=== PATIENT | male | born 1990 | race Caucasian/White ===

== ENCOUNTER 2017-04-17 10:22 | Emergency (ER) | payer OTHER ==
--- NOTE | 2017-04-17 12:22 | US ---
EXAMINATION TYPE: US thyroid st tissue head/neck DATE OF EXAM: 04/17/2017 COMPARISON: NONE CLINICAL HISTORY: mass. Palpable mass right neck submandibular x 1 week Right neck at palpable: 2.7 x 1.7 x 3.3cm hypoechoic vascular structure with hyperechoic hilum, proba ble lymph node Left neck for comparison: 1.9 x 0.9 x 2.5cm hypoechoic vascular structure with hyperechoic hilum, pro bable lymph node. IMPRESSION: Right-sided neck lymph node is abnormal with enlargement and loss of normal fatty hilum. Differential includes infection, inflammation, a neoplasm. Need to follow-up with cross-sectional im aging (CT or MRI) after medical treatment should be based on clinical correlation.
--- NOTE | 2017-04-17 12:22 | ED ---
General Adult HPI - General Chief complaint: Recheck/Abnormal Lab/Rx Stated complaint: Lump in neck Time Seen by Provider: 04/17/17 10:43 Source: patient, RN notes reviewed, old records reviewed Mode of arrival: ambulatory Limitations: no limitations - History of Present Illness Initial comments: This is a 27-year-old male to the ER for evaluation. Patient has no significant medical history takes no medications. No recent episodes of complaints of illness. Patient states he has had a mass or a lump underneath the right jaw for 5 days now which she awoke with 5 days ago. Patient states is not getting worse. Does not cause him significant pain, maybe a little bit of worse pain when he opens his mouth wide no difficulty with swallowing. Again no cough congestion fever, runny nose. Patient presents today because he has work and wanted to be evaluated - Related Data Home Medications Medication Instructions Recorded Confirmed No Known Home Medications [No 09/14/15 04/17/17 Known Home Medications] Allergies Allergy/AdvReac Type Severity Reaction Status Date / Time codeine Allergy Rash/Hives Verified 04/17/17 10:57 Penicillins Allergy Rash/Hives Verified 04/17/17 10:57 lactose AdvReac Nausea & Verified 04/17/17 10:57 Vomiting & Diarrhea Review of Systems ROS Statement: Those systems with pertinent positive or pertinent negative responses have been documented in the HPI. ROS Other: All systems not noted in ROS Statement are negative. 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 Absent: scleral icterus, conjunctival injection, periorbital swelling ENT exam: Present: normal exam, mucous membranes moist, other (Patient does have 3 x 3 cm area mass underneath right jaw, submandibular) Neck exam: Present: normal inspection. Absent: tenderness, meningismus, lymphadenopathy Respiratory exam: Present: normal lung sounds bilaterally. Absent: respiratory distress, wheezes, rales, rhonchi, stridor Cardiovascular Exam: Present: regular rate, normal rhythm, normal heart sounds. Absent: systolic murmur, diastolic murmur, rubs, gallop, clicks GI/Abdominal exam: Present: soft, normal bowel sounds. Absent: distended, tenderness, guarding, rebound, rigid Extremities exam: Present: normal inspection, full ROM, normal capillary refill. Absent: tenderness, pedal edema, joint swelling, calf tenderness Back exam: Present: normal inspection Neurological exam: Present: alert, oriented X3, CN II-XII intact Psychiatric exam: Present: normal affect, normal mood Skin exam: Present: warm, dry, intact, normal color. Absent: rash Course Vital Signs 04/17/17 10:36 Temperature 99.3 F Pulse Rate 91 Respiratory 18 Rate Blood Pressure 171/94 O2 Sat by Pulse 99 Oximetry - Reevaluation(s) Reevaluation #1: 04/17/17 14:26 Discussed at length with patient findings, will follow-up with primary care, patient does see Dr. Fam Medical Decision Making - Medical Decision Making 27 male the ER with right submandibular mass, lymphadenopathy. Likely sinus infection. Patient will be placed on antibiotics and discharged home - Lab Data Result diagrams: 04/17/17 12:50 04/17/17 12:50 Lab Results 04/17/17 04/17/17 Range/Units 12:50 12:50 WBC 6.5 (3.8-10.6) k/uL RBC 5.37 (4.30-5.90) m/uL Hgb 15.7 (13.0-17.5) gm/dL Hct 46.1 (39.0-53.0) % MCV 85.8 (80.0-100.0) fL MCH 29.1 (25.0-35.0) pg MCHC 34.0 (31.0-37.0) g/dL RDW 13.5 (11.5-15.5) % Plt Count 183 (150-450) k/uL Neutrophils % 47 % Lymphocytes % 36 % Monocytes % 8 % Eosinophils % 5 % Basophils % 1 % Neutrophils # 3.1 (1.3-7.7) k/uL Lymphocytes # 2.3 (1.0-4.8) k/uL Monocytes # 0.5 (0-1.0) k/uL Eosinophils # 0.3 (0-0.7) k/uL Basophils # 0.1 (0-0.2) k/uL Sodium 144 (137-145) mmol/L Potassium 4.2 (3.5-5.1) mmol/L Chloride 105 (98-107) mmol/L Carbon Dioxide 28 (22-30) mmol/L Anion Gap 11 mmol/L BUN 11 (9-20) mg/dL Creatinine 0.80 (0.66-1.25) mg/dL Est GFR (MDRD) Af Amer >60 (>60 ml/min/1.73 sqM) Est GFR (MDRD) Non-Af >60 (>60 ml/min/1.73 sqM) Glucose 101 H (74-99) mg/dL Calcium 9.7 (8.4-10.2) mg/dL Phosphorus 2.6 (2.5-4.5) mg/dL Magnesium 2.0 (1.6-2.3) mg/dL Total Bilirubin 0.5 (0.2-1.3) mg/dL AST 129 H (17-59) U/L ALT 173 H (21-72) U/L Alkaline Phosphatase 77 (38-126) U/L C-Reactive Protein 14.0 H (<10.0) mg/L Total Protein 7.9 (6.3-8.2) g/dL Albumin 4.8 (3.5-5.0) g/dL Amylase 53 (30-110) U/L - Radiology Data Radiology results: report reviewed (US neck p[ositive LN, CT soft tissue neck likely LNadenopathy), image reviewed Disposition Clinical Impression: LAD (lymphadenopathy) of right cervical region, Sinusitis Narrative: Right Submandibular Lymphadenopathy Disposition: HOME SELF-CARE Condition: Good Instructions: Sinusitis (ED), Lymphadenopathy (ED) Referrals: Rudy Linares Jr, [Primary Care Provider] - 1-2 days
[2017-04-17] MEDS ORDERED: RX INFO: IV CONTRAST WAS GIVEN 1 EACH MISC MISCELLANE PRN (12:26)
[2017-04-17] MEDS ORDERED: SODIUM CHLORIDE 0.9% 1,000 ML IV STA (12:29)
[2017-04-17 13:06] LABS: Basophils # (A) 0.1 k/uL (0-0.2); Basophils % (A) 1 %; Eosinophils # (A) 0.3 k/uL (0-0.7); Eosinophils % (A) 5 %; HCT 46.1 % (39.0-53.0); HGB 15.7 gm/dL (13.0-17.5); Lymphocytes # (A) 2.3 k/uL (1.0-4.8); Lymphocytes % (A) 36 %; MCH 29.1 pg (25.0-35.0); MCV 85.8 fL (80.0-100.0); Mean Platelet Volume 7.5; Monocytes # (A) 0.5 k/uL (0-1.0); Monocytes % (A) 8 %; Neutrophils # (A) 3.1 k/uL (1.3-7.7); Neutrophils % (A) 47 %; Platelet Count 183 k/uL (150-450); RBC 5.37 m/uL (4.30-5.90); RDW 13.5 % (11.5-15.5); WBC 6.5 k/uL (3.8-10.6)
[2017-04-17 13:16] LABS: ALT 173 U/L (21-72); AST 129 U/L (17-59); Albumin 4.8 g/dL (3.5-5.0); Alkaline Phosphatase 77 U/L (38-126); Amylase 53 U/L (30-110); Anion Gap 11 mmol/L; Blood Urea Nitrogen 11 mg/dL (9-20); Calcium 9.7 mg/dL (8.4-10.2); Carbon Dioxide 28 mmol/L (22-30); Chloride 105 mmol/L (98-107); Glucose 101 mg/dL (74-99); Phosphorus 2.6 mg/dL (2.5-4.5); Potassium 4.2 mmol/L (3.5-5.1); Sodium 144 mmol/L (137-145); Total Bilirubin 0.5 mg/dL (0.2-1.3); Total Protein 7.9 g/dL (6.3-8.2)
--- NOTE | 2017-04-17 13:50 | CT ---
EXAMINATION TYPE: CT soft tissue neck w con DATE OF EXAM: 04/17/2017 HISTORY: Lump Rt side of neck COMPARISON: NONE CT DLP: 396.1 mGycm. Automated Exposure Control for Dose Reduction was Utilized. TECHNIQUE: CT scan of the neck is performed with IV Contrast, patient injected with 100 mL of Omnipa que 300, axial images are obtained, coronal and sagittal reformatted images are reviewed. FINDINGS: Airway: No gross abnormality seen. Parotid/submandibular glands: Parotid and submandibular glands are symmetric other than the mass effe ct of the right submandibular gland as described below. No surrounding inflammatory change. Carotid/Vascular Structures: No hemodynamically significant stenosis. There is a normal anatomic bran ch pattern configuration of the great vessels. Vertebral arteries are codominant. Osseous Structures: Moderate right and severe left polypoid mucosal thickening is seen within the max illary sinuses extending into the ethmoid sinuses, partially visualized. Mastoid air cells are well a erated as are the sphenoid sinuses as visualized. Osseous structures appear intact. Lymph nodes: Corresponding the palpable abnormality in the submandibular region with mass effect upon the submandibular gland, displacing the submandibular gland posteriorly, there is an abnormal and en larged 2.1 x 3.5 x 2.1 cm lymph node that is asymmetrically enlarged from the left. Prominent left batista bmandibular lymph node maintains a normal fatty hilum and measures 1 cm in short axis. No other enlar ged lymph nodes are seen within the neck. IMPRESSION: An enlarged abnormal right submandibular lymph node corresponds to the patient's palpable abnormality . Moderate to severe paranasal sinus disease is also appreciated. Therefore this lymph node could be reactive or neoplastic with lymphoma as a consideration. Correlation with hematology assessment is re commended.
[2017-04-17] MEDS ORDERED: DEXAMETHASONE SOD PHOSPHATE 10 MG/ML 1 ML VIAL IV STA (14:24)
[2017-04-17] MEDS ORDERED: KETOROLAC 30 MG/ML 1 ML VIAL IVP STA (14:24)
[2017-04-17] MEDS ORDERED: AZITHROMYCIN 500 MG TAB PO STA (14:25)
[2017-04-17 14:51] VITALS: BP 134/61; PULSE 85; RESP 16; TEMP 97.6
== END 2017-04-17 14:51 | disposition home or self-care (01) ==
LOC: EC 10:22
DX: J32.9 Chronic sinusitis, unspecified (principal); R59.0 Localized enlarged lymph nodes; F17.200 Nicotine dependence, unspecified, uncomplicated; Z91.011 Allergy to milk products; Z88.0 Allergy status to penicillin; Z88.5 Allergy status to narcotic agent
CPT/HCPCS: 36415; 80053; 82150; 83735; 84100; 85025; 86140; 87040; 76536; 70491; 99284; 96374; 96375; J1100; J1885; Q9967

== ENCOUNTER 2017-07-09 10:21 | Emergency (ER) | payer OTHER ==
[2017-07-09 10:32] VITALS: BP 128/81; PULSE 105; RESP 18; TEMP 99
--- NOTE | 2017-07-09 10:52 | ED ---
General Adult HPI - General Chief complaint: Extremity Problem,Nontraumatic Stated complaint: Right knee pain Time Seen by Provider: 07/09/17 10:37 Source: patient, RN notes reviewed Mode of arrival: wheelchair Limitations: physical limitation - History of Present Illness Initial comments: Patient 27-year-old male presenting to the emergency room today with a chief complaint of both right hip and knee pain. He states he woke up this morning with pain greatest in the right knee. Also missed some discomfort to the right hip with certain movements. Patient denies any specific injury or trauma. Believes he may have done something body was sleeping. He does admit that the pain is worse with flexion at the right knee and hip. Patient states he did take ibuprofen 2 hours ago and has had some relief of the symptoms. Patient denies any other complaints or symptoms at this time. Patient denies any recent fever, chills, shortness of breath, chest pain, abdominal pain, nausea or vomiting, numbness or tingling, headaches or visual changes, or any other complaints. - Related Data Previous Rx's Medication Instructions Recorded Azithromycin [Zithromax Z-pack] 0 mg PO DIRECTED #6 tab 04/17/17 Naproxen [Naprosyn] 500 mg PO Q12HR PRN #30 tab 04/17/17 Naproxen [Naprosyn] 500 mg PO Q12HR PRN #30 tab 04/17/17 Allergies Allergy/AdvReac Type Severity Reaction Status Date / Time codeine Allergy Rash/Hives Verified 07/09/17 10:31 Penicillins Allergy Rash/Hives Verified 07/09/17 10:31 lactose AdvReac Nausea & Verified 07/09/17 10:31 Vomiting & Diarrhea Review of Systems ROS Statement: Those systems with pertinent positive or pertinent negative responses have been documented in the HPI. ROS Other: All systems not noted in ROS Statement are negative. 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 Neck: The neck is supple, there is no tenderness or JVD. Musculoskeletal: Normal appearance of the right hip and knee no swelling or deformity. Patient shows full range motion both flexion and extension. Mild tenderness over the lateral aspect of the right hip. Mildly tender over the anterior aspect of the right knee. No bony tenderness down to the right ankle or foot. Pedal pulse 2+. Strength 5/5. Neurological: A&O x 3. CN II-XII intact, There are no obvious motor or sensory deficits. Coordination appears grossly intact. Speech is normal. Skin: Skin is warm and dry and no rashes or lesions are noted. Psychiatric: Normal mood and affect. Limitations: physical limitation Course Vital Signs 07/09/17 10:27 Temperature 99.0 F Pulse Rate 105 H Respiratory 18 Rate Blood Pressure 128/81 O2 Sat by Pulse 97 Oximetry Medical Decision Making - Medical Decision Making Patient reexamined showing no signs of distress. Patient's x-rays are negative. Patient requesting work no. Patient advised continue Tylenol/Advil for pain and follow-up family doctor symptoms persist. Disposition Clinical Impression: Knee pain Disposition: HOME SELF-CARE Condition: Good Is patient prescribed a controlled substance at d/c from ED?: No Referrals: Rudy Linares Jr, DO [Primary Care Provider] - 1-2 days Time of Disposition: 11:38
--- NOTE | 2017-07-09 11:18 | XR ---
EXAMINATION TYPE: XR knee complete RT DATE OF EXAM: 07/09/2017 CLINICAL HISTORY: Right knee pain with no known injury TECHNIQUE: Three views of the right knee are obtained. COMPARISON: None. FINDINGS: There is no acute fracture/dislocation evident in right knee. The tri-compartment joint s paces appear within normal limits. The overlying soft tissue appears unremarkable. IMPRESSION: There is no acute fracture or dislocation in the right knee.
--- NOTE | 2017-07-09 11:19 | XR ---
EXAMINATION TYPE: XR pelvis AP view DATE OF EXAM: 07/09/2017 CLINICAL HISTORY: Right hip pain with no known injury TECHNIQUE: A single AP view of the pelvis is obtained. COMPARISON: None. FINDINGS: There is no acute fracture/dislocation evident in the pelvis. The hip and sacroiliac join ts appear symmetric and unremarkable. The overlying soft tissue appears unremarkable. IMPRESSION: There is no acute fracture or dislocation in the pelvis.
== END 2017-07-09 12:12 | disposition home or self-care (01) ==
LOC: EC 10:21
DX: M25.561 Pain in right knee (principal); M25.551 Pain in right hip; F17.200 Nicotine dependence, unspecified, uncomplicated; Z88.0 Allergy status to penicillin; Z91.011 Allergy to milk products
CPT/HCPCS: 72170; 99283

== ENCOUNTER 2017-09-19 00:20 | Emergency (ER) | payer OTHER ==
[2017-09-19 00:27] VITALS: BP 164/94; PULSE 121; RESP 20; TEMP 98.3
--- NOTE | 2017-09-19 00:33 | ED ---
Upper Extremity HPI - General Chief Complaint: Extremity Injury, Upper Stated Complaint: HAND INJURY Time Seen by Provider: 09/19/17 00:28 Source: patient, RN notes reviewed Mode of arrival: ambulatory Limitations: no limitations - History of Present Illness Initial Comments: This is a 27-year-old male who presents to the emergency department with chief complaint of right hand injury. Patient states that at 6 PM this evening "in a fit of frustration" he punched his hardwood floor. Patient states he is sure he has a boxer's fracture. Denies any other injuries or trauma. Denies recent fevers or chills, chest pain or shortness of breath, abdominal pain, nausea or vomiting, numbness or tingling. Patient reports normal range of motion and sensation. - Related Data Previous Rx's Medication Instructions Recorded Azithromycin [Zithromax Z-pack] 0 mg PO DIRECTED #6 tab 04/17/17 Naproxen [Naprosyn] 500 mg PO Q12HR PRN #30 tab 04/17/17 Naproxen [Naprosyn] 500 mg PO Q12HR PRN #30 tab 04/17/17 Allergies Allergy/AdvReac Type Severity Reaction Status Date / Time codeine Allergy Rash/Hives Verified 09/19/17 00:26 Penicillins Allergy Rash/Hives Verified 09/19/17 00:26 lactose AdvReac Nausea & Verified 09/19/17 00:26 Vomiting & Diarrhea Review of Systems ROS Statement: Those systems with pertinent positive or pertinent negative responses have been documented in the HPI. ROS Other: All systems not noted in ROS Statement are negative. 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 HEENT: Head atraumatic, normocephalic. Pupils are equal, round and reactive to light. Extraocular movements intact. Oropharynx moist without erythema or exudate. Neck: Supple. Normal ROM. Cardiovascular: Regular rate and rhythm. No murmurs, rubs or gallops. Chest symmetrical. Respiratory: Lungs clear to auscultation bilaterally. No wheezes, rales or rhonchi. Normal respiratory effort with no use of accessory muscles. Musculoskeletal: Normal range of motion of the right hand. There is tenderness along the fourth metacarpal with mild soft tissue swelling noted. Normal range of motion and no tenderness of the right wrist. Sensation is intact. Radial pulses are 2+ equal and palpable bilaterally. Skin: [place], warm and dry without rashes or lesions. Neurological: Alert and oriented x3. CN II-XII grossly intact. Speech is fluent and answers are appropriate. No focal neuro deficits. Psychiatric: Normal mood and affect. No overt signs of depression or anxiety noted. Limitations: no limitations Course Vital Signs 09/19/ 00:24 Temperature 98.3 F Pulse Rate 121 H Respiratory 20 Rate Blood Pressure 164/94 O2 Sat by Pulse 98 Oximetry Medical Decision Making - Medical Decision Making This is a 27-year-old male who presents to the emergency department chief complaint right hand injury. Patient reports punching a hardwood floor earlier this evening. On physical examination, there is mild soft tissue swelling and tenderness along the fourth metacarpal in the right hand. Patient is neurovascularly intact. X-ray of the right hand revealed no acute osseous abnormalities. Patient will be discharged home at this time. Recommended ice, elevation and ibuprofen or Tylenol as needed. - Radiology Data Radiology results: report reviewed, image reviewed X-ray and impression: Soft tissue swelling. No fracture. Disposition Clinical Impression: Hand contusion Disposition: HOME SELF-CARE Condition: Good Instructions: Contusion in Adults (ED), RICE Therapy (ED) Additional Instructions: Please follow up with primary care provider within 1-2 days. Return to emergency department if symptoms should worsen or any concerns arise. Is patient prescribed a controlled substance at d/c from ED?: No Referrals: Rudy Linares Jr, [Primary Care Provider] - 1-2 days Time of Disposition: 01:08
--- NOTE | 2017-09-19 01:01 | XR ---
EXAMINATION TYPE: XR hand complete RT DATE OF EXAM: 09/19/2017 COMPARISON: NONE HISTORY: Hand pain TECHNIQUE: 3 views FINDINGS: I see no fracture nor dislocation. There is soft tissue swelling on the dorsum of the hand. Metacarpals appear intact. IMPRESSION: Soft tissue swelling. No fracture.
== END 2017-09-19 01:23 | disposition home or self-care (01) ==
LOC: EC 00:20
DX: S60.221A Contusion of right hand, initial encounter (principal); F17.200 Nicotine dependence, unspecified, uncomplicated; Z88.0 Allergy status to penicillin; Z88.5 Allergy status to narcotic agent; Z91.011 Allergy to milk products; W22.8XXA Striking against or struck by other objects, initial encounter; Y92.009 Unspecified place in unspecified non-institutional (private) residence as the place of occurrence of the external cause
CPT/HCPCS: 99283

== ENCOUNTER 2017-12-04 08:35 | Emergency (ER) | payer OTHER ==
[2017-12-04 08:50] VITALS: TEMP 98.9
[2017-12-04] MEDS ORDERED: IPRATROPIUM-ALBUTEROL 3 ML NEB INHALATION STA (09:15)
--- NOTE | 2017-12-04 09:38 | ED ---
General Adult HPI - General Chief complaint: Upper Respiratory Infection Stated complaint: SOB Time Seen by Provider: 12/04/17 09:01 Source: patient, RN notes reviewed Mode of arrival: ambulatory Limitations: no limitations - History of Present Illness Initial comments: Patient 27-year-old male presented to the emergency room today with a chief complaint of cough congestion over the last 3 days. Patient does admit to asthma as a child. He states that he did feel more congested this morning when he woke up. Patient denies any sputum production. He denies any other complaints or symptoms. He does admit to a history of bronchitis and states this feels similar. Patient denies any recent fever, chills, shortness of breath , chest pain, back pain, abdominal pain, nausea or vomiting,headaches or visual changes, or any other complaints. - Related Data Home Medications Medication Instructions Recorded Confirmed Cough & Congestion Otc (Unknown) 1 dose PO TID PRN 12/04/17 12/04/17 Ibuprofen [Motrin Ib] 600 mg PO Q6H PRN 12/04/17 12/04/17 Previous Rx's Medication Instructions Recorded Albuterol Inhaler [Ventolin Hfa 1 - 2 puff INHALATION Q4-6H PRN #1 12/04/17 Inhaler] inhaler Azithromycin [Zithromax Z-pack] 0 mg PO DIRECTED #6 tab 12/04/17 predniSONE 50 mg PO DAILY #5 tab 12/04/17 Allergies Allergy/AdvReac Type Severity Reaction Status Date / Time codeine Allergy Rash/Hives Verified 12/04/17 08:56 Penicillins Allergy Rash/Hives Verified 12/04/17 08:56 lactose AdvReac Nausea & Verified 12/04/17 08:56 Vomiting & Diarrhea Review of Systems ROS Statement: Those systems with pertinent positive or pertinent negative responses have been documented in the HPI. ROS Other: All systems not noted in ROS Statement are negative. 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 Eye: Pupils are equal, round and reactive to light. Extra-ocular movements are intact. No nystagmus. There is normal conjunctiva bilaterally. No signs of icterus. Ears, nose, mouth and throat: There are moist mucous membranes and no oral lesions. Neck: The neck is supple, there is no tenderness or JVD. Cardiovascular: There is a regular rate and rhythm. No murmur, rub or gallop is appreciated. Respiratory: Bilateral expiratory wheeze. respirations are non-labored, breath sounds are equal. Nostridor, rales, or rhonchi. Musculoskeletal: Normal ROM, no tenderness. Sensation intact. Strength 5/5. Pulses equal bilaterally 2+. Neurological: A&O x 3. CN II-XII intact, There are no obvious motor or sensory deficits. Coordination appears grossly intact. Speech is normal. Skin: Skin is warm and dry and no rashes or lesions are noted. Psychiatric: Cooperative, appropriate mood & affect, normal judgment. Limitations: no limitations Course Vital Signs 12/04/17 12/04/17 12/04/17 08:48 09:20 09:28 Temperature 98.9 F Pulse Rate 89 88 92 Respiratory 18 Rate Blood Pressure 137/84 O2 Sat by Pulse 98 Oximetry 12/04/17 10:07 Temperature Pulse Rate 86 Respiratory 17 Rate Blood Pressure 135/88 O2 Sat by Pulse 96 Oximetry Medical Decision Making - Medical Decision Making Patient's x-rays reviewed is negative for any sign of pneumonia. Patient will be treated for bronchitis infection his breathing is much improved after breathing treatment. Lung sounds are clear. Patient will be given albuterol inhaler along with steroids and a Z-Vipin for his symptoms. He is advised follow- up over the next 2 days return if symptoms should worsen. Disposition Clinical Impression: Acute bronchitis Disposition: HOME SELF-CARE Condition: Good Instructions: Acute Bronchitis (ED) Additional Instructions: Please use medication as discussed. Please follow-up with family doctor in the next 2 days of symptoms have not improved. Please return to emergency room if the symptoms increase or worsen or for any other concerns. Prescriptions: Albuterol Inhaler [Ventolin Hfa Inhaler] 1 - 2 puff INHALATION Q4-6H PRN #1 inhaler PRN Reason: Cough Azithromycin [Zithromax Z-pack] 0 mg PO DIRECTED #6 tab predniSONE 50 mg PO DAILY #5 tab Is patient prescribed a controlled substance at d/c from ED?: No Referrals: Rudy Linares Jr, DO [Primary Care Provider] - 1-2 days Time of Disposition: 10:31
--- NOTE | 2017-12-04 09:42 | XR ---
EXAMINATION TYPE: XR chest 2V DATE OF EXAM: 12/04/2017 COMPARISON: NONE HISTORY: Chest pain TECHNIQUE: Frontal and lateral views of the chest are obtained. FINDINGS: There is no focal air space opacity. No evidence for pneumothorax. No pleural effusion. The cardiac silhouette size is within normal limits. The osseous structures are grossly intact. IMPRESSION: 1. No acute cardiopulmonary process.
[2017-12-04 10:12] VITALS: BP 135/88; PULSE 86; RESP 17
== END 2017-12-04 10:42 | disposition home or self-care (01) ==
LOC: EC 08:35
DX: J20.9 Acute bronchitis, unspecified (principal); F17.200 Nicotine dependence, unspecified, uncomplicated; Z91.011 Allergy to milk products; Z88.0 Allergy status to penicillin; Z88.5 Allergy status to narcotic agent
CPT/HCPCS: 71046; 94640; 99285

== ENCOUNTER 2018-01-05 14:55 | Emergency (ER) | payer OTHER ==
[2018-01-05 16:19] LABS: Basophils # (A) 0.1 k/uL (0-0.2); Basophils % (A) 1 %; Eosinophils # (A) 0.5 k/uL (0-0.7); Eosinophils % (A) 7 %; HCT 47.5 % (39.0-53.0); HGB 15.8 gm/dL (13.0-17.5); Lymphocytes # (A) 2.2 k/uL (1.0-4.8); Lymphocytes % (A) 27 %; MCH 29.6 pg (25.0-35.0); MCHC 33.2 g/dL (31.0-37.0); Mean Platelet Volume 7.4; Monocytes # (A) 0.7 k/uL (0-1.0); Monocytes % (A) 9 %; Neutrophils # (A) 4.2 k/uL (1.3-7.7); Neutrophils % (A) 54 %; Platelet Count 168 k/uL (150-450); RBC 5.34 m/uL (4.30-5.90); RDW 13.4 % (11.5-15.5); WBC 7.9 k/uL (3.8-10.6)
[2018-01-05 16:20] LABS: Appearance,Urine Clear (Clear); Bilirubin,Urine Negative (Negative); Blood,Urine Negative (Negative); Color,Urine Yellow; Glucose,Urine (UA) Negative (Negative); Ketones,Urine Negative (Negative); Leukocyte Esterase,Urine Negative (Negative); Nitrite,Urine Negative (Negative); PH, Urine 5.5 (5.0-8.0); Protein,Urine Negative (Negative); Specific Gravity,Urine 1.021 (1.001-1.035); Urobilinogen,Urine <2.0 mg/dL (<2.0)
[2018-01-05 16:29] LABS: ALT 75 U/L (21-72); AST 56 U/L (17-59); Albumin 4.4 g/dL (3.5-5.0); Alkaline Phosphatase 68 U/L (38-126); Anion Gap 7 mmol/L; Blood Urea Nitrogen 14 mg/dL (9-20); Calcium 9.9 mg/dL (8.4-10.2); Carbon Dioxide 27 mmol/L (22-30); Chloride 107 mmol/L (98-107); Glucose 103 mg/dL (74-99); Potassium 4.6 mmol/L (3.5-5.1); Sodium 141 mmol/L (137-145); Total Bilirubin 0.6 mg/dL (0.2-1.3); Total Protein 7.5 g/dL (6.3-8.2)
--- NOTE | 2018-01-05 16:37 | US ---
EXAMINATION TYPE: US gallbladder DATE OF EXAM: 01/05/2018 COMPARISON: NONE CLINICAL HISTORY: Pain. Pt states right side ABD pain EXAM MEASUREMENTS: Liver Length: 18.5 cm Gallbladder Wall: 0.2 cm CBD: 0.4 cm Right Kidney: 10.0 x 5.0 x 5.5 cm Pancreas: Obscured by bowel gas Liver: Enlarged.There is increased echogenicity of the hepatic parenchyma with diminished visualizat ion of the portal triads most commonly relating to hepatic steatosis and limiting evaluation for unde rlying hepatic masses. Gallbladder: wnl Evidence for sonographic Buchanan's sign: No CBD: wnl Right Kidney: wnl IMPRESSION: No sonographic evidence of cholelithiasis or acute cholecystitis. Findings are most carol tible with hepatic steatosis. Correlate with liver function tests.
[2018-01-05 16:50] VITALS: RESP 18
[2018-01-05] MEDS ORDERED: KETOROLAC 30 MG/ML 1 ML VIAL IVP STA (17:00)
[2018-01-05] MEDS ORDERED: SODIUM CHLORIDE 0.9% 1,000 ML IV STA (17:00)
--- NOTE | 2018-01-05 17:34 | ED ---
General Adult HPI - General Chief complaint: Abdominal Pain Stated complaint: side pain Source: patient, RN notes reviewed, old records reviewed Mode of arrival: ambulatory Limitations: no limitations - History of Present Illness Initial comments: 27-year-old male patient presents in ED with right flank pain. Patient states that this pain has been bothering him for approximately 4 days. Patient states that the pain is an intermittent stabbing pain worse with movements, twisting. Patient states that the pain is not tender to palpation. Patient denies pleuritic chest pain, shortness of breath, chest pain, abdominal pain. Patient denies urinary complaints including dysuria, hematuria. Patient has not had a history of renal calculi or kidney problems. Pt has a history of ETOH usage. Systemic: Pt denies fatigue, myalgia, fever/chills, rash. Pt denies weakness, night sweats, weight loss. Neuro: Pt denies headache, visual disturbances, syncope or pre-syncope. HEENT: Pt denies ocular discharge or irritation, otalgia, rhinorrhea, pharyngitis or notable lymphadenopathy. Cardiopulmonary: Pt denies chest pain, SOB, heart palpitations, dyspnea on exertion. Abdominal/GI: Pt denies abdominal pain, n/v/d. : Pt denies dysuria, burning w/ urination, frequency/urgency. Denies new onset urinary or bowel incontinence. MSK: Pt denies myalgia, loss of strength or function in extremities. - Related Data Previous Rx's Medication Instructions Recorded Ibuprofen [Motrin] 600 mg PO Q8HR PRN #20 tab 12/10/17 Allergies Allergy/AdvReac Type Severity Reaction Status Date / Time codeine Allergy Rash/Hives Verified 01/05/18 15:58 Penicillins Allergy Rash/Hives Verified 01/05/18 15:58 lactose AdvReac Nausea & Verified 01/05/18 15:58 Vomiting & Diarrhea Review of Systems ROS Statement: Those systems with pertinent positive or pertinent negative responses have been documented in the HPI. ROS Other: All systems not noted in ROS Statement are negative. 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 HEENT: NC/AT, trachea midline, neck supple, no lymphadenopathy. Posterior pharynx non erythematous, without exudates. External ears appear normal, without discharge. Mucous membranes moist. Eyes PERRLA, EOM intact. There is no scleral icterus. No pallor noted. Cardiopulmonary: RRR, no murmurs, rubs or gallops, no JVD noted. Lungs CTAB in anterior and posterior ware. No peripheral edema. Abdominal exam: Abdomen soft and non-distended. Abdomen non-tender to palpation in all 4 quadrants. No ecchymoses. Cullens/Sandoval Castorena sign negative. CVA tenderness negative bilaterally. Bowel sounds active in LLQ. No hepatosplenomegaly. Neuro: CN II-XII grossly intact. Limitations: no limitations Course Vital Signs 01/05/18 01/05/18 14:57 16:49 Temperature 97.6 F Pulse Rate 107 H 61 Respiratory 20 18 Rate Blood Pressure 149/79 142/89 O2 Sat by Pulse 103 H 98 Oximetry Medical Decision Making - Medical Decision Making 27-year-old male patient presents with right flank pain. Patient describes the pain is intermittent, worse with movements, sharp stabbing pain. Patient denies pleuritic chest pain. Patient has shortness of breath. Patient denies chest pain. Physical exam of HEENT, cardiopulmonary, abdominal exam did not reveal gross pathology. Abdomen is nontender, no ecchymoses. Today tenderness is negative bilaterally. No true point tenderness other complaints. Laboratory investigations were conducted including CBC, CMP, UA. The CMP displayed a slightly elevated ALT, laboratory investigations were otherwise benign. Pt has a history of elevated LFT's. A right upper quadrant ultrasound was conducted, which displayed fatty liver. Patient does have a prior history of alcohol usage. Discussed with patient that the fatty liver is the most likely cause of his symptoms. Counseled pt at length about ETOH use, high fructose drinks. Pt to f/u with PCP in 1-2 days. Pt to return to ED if new s/ sx develop including, abdominal pain, chest pain, sob, dysuria, hematuria or any other new symptoms. Case discussed with Dr. Mak. - Lab Data Result diagrams: 01/05/18 16:02 01/05/18 16:02 Lab Results 01/05/18 01/05/18 01/05/18 Range/Units 16:02 16:02 16:02 WBC 7.9 (3.8-10.6) k/uL RBC 5.34 (4.30-5.90) m/uL Hgb 15.8 (13.0-17.5) gm/dL Hct 47.5 (39.0-53.0) % MCV 89.0 (80.0-100.0) fL MCH 29.6 (25.0-35.0) pg MCHC 33.2 (31.0-37.0) g/dL RDW 13.4 (11.5-15.5) % Plt Count 168 (150-450) k/uL Neutrophils % 54 % Lymphocytes % 27 % Monocytes % 9 % Eosinophils % 7 % Basophils % 1 % Neutrophils # 4.2 (1.3-7.7) k/uL Lymphocytes # 2.2 (1.0-4.8) k/uL Monocytes # 0.7 (0-1.0) k/uL Eosinophils # 0.5 (0-0.7) k/uL Basophils # 0.1 (0-0.2) k/uL Sodium 141 (137-145) mmol/L Potassium 4.6 (3.5-5.1) mmol/L Chloride 107 (98-107) mmol/L Carbon Dioxide 27 (22-30) mmol/L Anion Gap 7 mmol/L BUN 14 (9-20) mg/dL Creatinine 0.80 (0.66-1.25) mg/dL Est GFR (CKD-EPI)AfAm >90 (>60 ml/min/1.73 sqM) Est GFR (CKD-EPI)NonAf >90 (>60 ml/min/1.73 sqM) Glucose 103 H (74-99) mg/dL Calcium 9.9 (8.4-10.2) mg/dL Total Bilirubin 0.6 (0.2-1.3) mg/dL AST 56 (17-59) U/L ALT 75 H (21-72) U/L Alkaline Phosphatase 68 (38-126) U/L Total Protein 7.5 (6.3-8.2) g/dL Albumin 4.4 (3.5-5.0) g/dL Urine Color Yellow Urine Appearance Clear (Clear) Urine pH 5.5 (5.0-8.0) Ur Specific Emmett 1.021 (1.001-1.035) Urine Protein Negative (Negative) Urine Glucose (UA) Negative (Negative) Urine Ketones Negative (Negative) Urine Blood Negative (Negative) Urine Nitrite Negative (Negative) Urine Bilirubin Negative (Negative) Urine Urobilinogen <2.0 (<2.0) mg/dL Ur Leukocyte Esterase Negative (Negative) Disposition Clinical Impression: Hepatic steatosis Disposition: HOME SELF-CARE Condition: Good Instructions: Non-Alcoholic Fatty Liver Disease (ED) Additional Instructions: Patient to adhere to previously discussed treatment plan and will take medication(s) as directed. Patient to follow up with PCP in 1-2 days. Patient to return to ED if symptoms do not improve. Is patient prescribed a controlled substance at d/c from ED?: No Referrals: Rudy Linares Jr, [Primary Care Provider] - 1-2 days Time of Disposition: 17:35
[2018-01-05 18:24] VITALS: BP 132/72; PULSE 71; TEMP 98.5
== END 2018-01-05 18:25 | disposition home or self-care (01) ==
LOC: EC 14:55
DX: K76.0 Fatty (change of) liver, not elsewhere classified (principal); R74.0 Nonspecific elevation of levels of transaminase and lactic acid dehydrogenase [LDH]; R06.02 Shortness of breath; F17.200 Nicotine dependence, unspecified, uncomplicated; Z88.0 Allergy status to penicillin; Z88.5 Allergy status to narcotic agent; Z91.011 Allergy to milk products
CPT/HCPCS: 36415; 80053; 85025; 81003; 76705; 99284; 96374; 96361; J1885

== ENCOUNTER 2018-06-27 15:13 | Emergency (ER) | payer OTHER ==
[2018-06-27 15:30] VITALS: BP 142/73; PULSE 94; RESP 20; TEMP 98.9
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
== END 2018-06-27 17:30 | disposition home or self-care (01) ==
LOC: EC 15:13
DX: S62.304A Unspecified fracture of fourth metacarpal bone, right hand, initial encounter for closed fracture (principal); F17.200 Nicotine dependence, unspecified, uncomplicated; Z88.5 Allergy status to narcotic agent; Z88.0 Allergy status to penicillin; Z91.011 Allergy to milk products; Y04.2XXA Assault by strike against or bumped into by another person, initial encounter; Y92.89 Other specified places as the place of occurrence of the external cause
CPT/HCPCS: 29125; 99283

== ENCOUNTER 2018-06-29 09:25 | Day surgery (SDC) | payer OTHER ==
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
[2018-06-28 14:05] VITALS: BMI 26.5
[~2018-06-29 09:25] MED LIST: DEXAMETHASONE SOD PHOSPHATE 10 MG/ML 1 ML VIAL IV ONE; LACTATED RINGERS 1,000 ML IV SCH; LIDOCAINE 1% 20 ML VIAL (10MG/ML) FOR IV START INTRADERMA PRN; MIDAZOLAM 2 MG/2 ML VIAL IV PRN; ONDANSETRON 4 MG/2 ML VIAL IVP ONE; ceFAZolin IN SWFI 2 GM/20 ML SYRINGE IVP ONE; fentaNYL (PF) 50 MCG/ML 2 ML AMP IV PRN
[2018-06-29] MEDS ORDERED: LIDOCAINE 1% INJ 10MG/ML (20 ML MDV) ONE (11:19)
[2018-06-29] MEDS ORDERED: fentaNYL (PF) 50 MCG/ML 2 ML AMP ONE (11:19)
[2018-06-29] MEDS ORDERED: NEOSTIGMINE 1 MG/ML 10 ML VIAL ONE (11:19)
[2018-06-29] MEDS ORDERED: PROPOFOL 10 MG/ML 20 ML VIAL IV ONE (11:19)
[2018-06-29] MEDS ORDERED: GLYCOPYRROLATE 0.2 MG/ML 2 ML VIAL ONE (11:19)
[2018-06-29] MEDS ORDERED: ROCURONIUM BROMIDE 10 MG/ML 10 ML VIAL IV ONE (11:19)
[2018-06-29] MEDS ORDERED: SUCCINYLCHOLINE CHLORIDE 100 MG/5 ML SYR IV ONE (11:19)
[2018-06-29] MEDS ORDERED: MIDAZOLAM 2 MG/2 ML VIAL ONE (11:19)
[2018-06-29] MEDS ORDERED: CLINDAMYCIN 150 MG/ML 4 ML VIAL IVPB ONE (11:45)
[2018-06-29] MEDS ORDERED: LACTATED RINGERS 1,000 ML IV ONE (11:45)
--- NOTE | 2018-06-29 12:01 | P.OP ---
Date of Procedure: 06/29/18 Preoperative Diagnosis: Displaced right fourth metacarpal proximal shaft fracture Postoperative Diagnosis: Same Procedure(s) Performed: Closed reduction and percutaneous pinning left fourth metacarpal proximal shaft fracture Implants: 0.062 inch K wire 1 Anesthesia: KARISSA Surgeon: Maldonado Riojas Estimated Blood Loss (ml): 1 Pathology: none sent Condition: stable Disposition: PACU Indications for Procedure: The patient's a 28-year-old [id number] male who presents after injuring his right hand recently and was noted have a closed displaced fourth metacarpal proximal shaft fracture. A discussion of the risks and benefits of operative intervention versus conservative measures was made with patient. He opted to proceed with surgery. Operative risks to include infection, neurovascular injury, development of nonunion/malunion, and possible need for subsequent procedures was discussed. Informed consent was obtained. Operative Findings: As below Description of Procedure: The patient was brought to the operating room, and after induction of general anesthesia the right upper extremity was prepped and draped in normal fashion. The fracture was reduced with longitudinal traction and manipulation. A 0.062 inch K wire was then inserted in the metacarpal head and the fracture site proximally. Final fluoroscopic views to include PA, AP, lateral, and oblique views showed adequate reduction of the fracture and placement of the implant. The pin was clipped below the level of skin. A sterile dressing was applied in addition to an ulnar gutter splint with the hand in functional position. No rotational abnormality of the digit was noted. The patient was then awoken from general anesthesia and transferred to recovery room in good condition. Blood loss was estimated at 1 mL. No complications were incurred.
[2018-06-29 12:28] VITALS: TEMP 97.4
[2018-06-29 12:56] VITALS: RESP 16
[2018-06-29] MEDS ORDERED: HYDROcodone/APAP 5-325MG 1 EACH TAB PO ONE (13:00)
[2018-06-29 13:12] VITALS: BP 151/89; PULSE 101
--- NOTE | 2018-06-29 14:14 | FL ---
Fluoroscopy HISTORY: Fourth metacarpal pain in placement, fracture 7 seconds fluoroscopy time supplied to the referring clinician. 3 intraoperative C-arm images docume nt the procedure. See dictated report from orthopedic surgery.
--- NOTE | 2018-06-29 14:14 | XR ---
Limited right hand HISTORY: Fracture 3 intraoperative C-arm images document the procedure.
== END 2018-06-29 13:41 | disposition home or self-care (01) ==
LOC: OR 09:25
PROVIDERS: ATTEND Orthopaedic Surgery
DX: S62.324A Displaced fracture of shaft of fourth metacarpal bone, right hand, initial encounter for closed fracture (principal); Y04.0XXA Assault by unarmed brawl or fight, initial encounter; F17.290 Nicotine dependence, other tobacco product, uncomplicated; Z88.5 Allergy status to narcotic agent; Z88.0 Allergy status to penicillin
CPT/HCPCS: 73130; 26608; C1713; J2250; J1100; J2710; J2405; J2001; J3010; J0330; J2704

== ENCOUNTER 2022-08-05 13:42 | Emergency (ER) | payer OTHER ==
[2022-08-05 14:28] VITALS: TEMP 98.6
[2022-08-05] MEDS ORDERED: LORazepam 2 MG/ML INJ IV STA (15:09)
[2022-08-05 15:52] LABS: Basophils % (A) 1 %; Eosinophils # (A) 0.1 k/uL (0-0.7); Eosinophils % (A) 1 %; HGB 16.4 gm/dL (13.0-17.5); Lymphocytes # (A) 2.1 k/uL (1.0-4.8); Lymphocytes % (A) 29 %; MCHC 34.2 g/dL (31.0-37.0); MCV 84.8 fL (80.0-100.0); Mean Platelet Volume 7.1; Monocytes # (A) 0.4 k/uL (0-1.0); Monocytes % (A) 6 %; Neutrophils # (A) 4.4 k/uL (1.3-7.7); Neutrophils % (A) 62 %; Platelet Count 234 k/uL (150-450); RBC 5.66 m/uL (4.30-5.90); WBC 7.1 k/uL (3.8-10.6)
--- NOTE | 2022-08-05 15:56 | ED ---
General Adult HPI - General Chief complaint: Recheck/Abnormal Lab/Rx Stated complaint: Alcohol Withdrawls Time Seen by Provider: 08/05/22 15:01 Source: patient, RN notes reviewed, old records reviewed Mode of arrival: ambulatory Limitations: no limitations - History of Present Illness Initial comments: 32-year-old male presenting for evaluation of alcohol use and concern for withdrawal. Patient states his last drink was yesterday morning. He drinks approximately 322 ounce beers daily. Patient was concerned that he was having withdrawal symptoms related to nausea vomiting and diarrhea. Patient denies previous withdrawal seizure but states that he was concerned about seizure. Patient denies depression or suicidal ideation. - Related Data Previous Rx's Medication Instructions Recorded LORazepam [Ativan] 1 mg PO TID PRN 3 Days #9 tab 08/05/22 Allergies Allergy/AdvReac Type Severity Reaction Status Date / Time codeine Allergy Rash/Hives Verified 08/05/22 16:04 Penicillins Allergy Rash/Hives Verified 08/05/22 16:04 lactose AdvReac Nausea & Verified 08/05/22 16:04 Vomiting & Diarrhea Review of Systems ROS Statement: Those systems with pertinent positive or pertinent negative responses have been documented in the HPI. ROS Other: All systems not noted in ROS Statement are negative. 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,Reynaud's disease History of Any Multi-Drug Resistant Organisms: None Reported Past Surgical History: Orthopedic Surgery Additional Past Surgical History / Comment(s): right foot,wisdom teeth Past Anesthesia/Blood Transfusion Reactions: No Reported Reaction Additional Past Anesthesia/Blood Transfusion Reaction / Comment(s): no hx blood transfusion Past Psychological History: ADD/ADHD, Anxiety, Bipolar Past Alcohol Use History: Abuse, Daily, Heavy Past Drug Use History: Marijuana - Past Family History Mother Family Medical History: No Reported History General Exam Limitations: no limitations General appearance: alert, in no apparent distress Head exam: Present: atraumatic, normocephalic Eye exam: Present: normal appearance, PERRL ENT exam: Present: normal exam Neck exam: Present: normal inspection. Absent: tenderness, meningismus Respiratory exam: Present: normal lung sounds bilaterally. Absent: respiratory distress, wheezes Cardiovascular Exam: Present: regular rate, normal rhythm GI/Abdominal exam: Present: soft. Absent: distended, tenderness, guarding Extremities exam: Present: normal inspection, normal capillary refill. Absent: pedal edema Neurological exam: Present: alert, oriented X3, CN II-XII intact. Absent: motor sensory deficit Psychiatric exam: Present: normal affect, normal mood Skin exam: Present: warm, dry, intact. Absent: cyanosis, diaphoretic Course Vital Signs 08/05/22 14:25 Temperature 98.6 F Pulse Rate 110 H Respiratory 20 Rate Blood Pressure 154/89 O2 Sat by Pulse 94 L Oximetry Medical Decision Making - Medical Decision Making Was pt. sent in by a medical professional or institution (, MAITE, CV/CVN CV TSC SYSTEM OPERATOR, urgent care, hospital, or alf...) When possible be specific @ -No Did you speak to anyone other than the patient for history (EMS, parent, family, police, friend...)? What history was obtained from this source @ -No Did you review nursing and triage notes (agree or disagree)? Why? @ -I reviewed and agree with nursing and triage notes Were old charts reviewed (outside hosp., previous admission, EMS record, old EKG, old radiological studies, urgent care reports/EKG's, alf records)? Report findings @ -No old charts were reviewed Differential Diagnosis (chest pain, altered mental status, abdominal pain women, abdominal pain men, vaginal bleeding, weakness, fever, dyspnea, syncope, headache, dizziness, GI bleed, back pain, seizure, CVA, palpatations, mental health, musculoskeletal)? @Alcohol withdrawal, delirium tremens, depression EKG interpreted by me (3pts min.). @ -As above X-rays interpreted by me (1pt min.). @ -None done CT interpreted by me (1pt min.). @ -None done U/S interpreted by me (1pt. min.). @ -None done What testing was considered but not performed or refused? (CT, X-rays, U/S, labs)? Why? @ -None What meds were considered but not given or refused? Why? @ -None Did you discuss the management of the patient with other professionals (professionals i.e. MAITE Valadez, CV/CVN CV TSC SYSTEM OPERATOR, lab, RT, psych nurse, oncology social work, hub associate, teacher, biological technical officer, manager case)? Give summary @ -No Was smoking cessation discussed for >3mins.? @ -No Was critical care preformed (if so, how long)? @ -No Were there social determinants of health that impacted care today? How? (Homelessness, low income, unemployed, alcoholism, drug addiction, transportation, low edu. Level, literacy, decrease access to med. care, fpc, rehab)? @ -No Was there de-escalation of care discussed even if they declined (Discuss DNR or withdrawal of care, Hospice)? DNR status @ -No What co-morbidities impacted this encounter? (DM, HTN, Smoking, COPD, CAD, C ancer, CVA, ARF, Chemo, Hep., AIDS, mental health diagnosis, sleep apnea, morbid obesity)? @ -[Alcoholism Was patient admitted / discharged? Hospital course, mention meds given and route, prescriptions, significant lab abnormalities, going to OR and other pertinent info. @ -[32-year-old male who presents with concern for withdrawal. Patient appears well mild tachycardia but otherwise stable vitals. Patient is alert, non- tremulous. He drinks the equivalent of 6 beers daily. He is planning on going to rehab and [place] and is planning on going tomorrow. I did obtain laboratory testing which showed a mild transaminitis but overall unremarkable. Patient given 1 mg of Ativan in the emergency department and feels well. He is not suicidal, not depressed. He is planning on going to rehab tomorrow. He is prescribed three-day supply of Ativan for withdrawal symptoms. Undiagnosed new problem with uncertain prognosis? @ -No Drug Therapy requiring intensive monitoring for toxicity (Heparin, Nitro, Insulin, Cardizem)? @ -No Were any procedures done? @ -No Diagnosis/symptom? @ -Alcoholism with concern for withdrawal Acute, or Chronic, or Acute on Chronic? @ -[Acute on chronic Uncomplicated (without systemic symptoms) or Complicated (systemic symptoms)? @ -default Side effects of treatment? @ -No Exacerbation, Progression, or Severe Exacerbation? @ -No Poses a threat to life or bodily function? How? (Chest pain, USA, [place], pneumonia, PE, COPD, DKA, ARF, appy, cholecystitis, CVA, Diverticulitis, Homicidal, Suicidal, threat to staff... and all critical care pts) @ -[Yes, alcohol withdrawal - Lab Data Result diagrams: 08/05/22 15:47 08/05/22 15:47 Lab Results 08/05/22 08/05/22 08/05/22 Range/Units 15:47 15:47 15:47 WBC 7.1 (3.8-10.6) k/uL RBC 5.66 (4.30-5.90) m/uL Hgb 16.4 (13.0-17.5) gm/dL Hct 48.0 (39.0-53.0) % MCV 84.8 (80.0-100.0) fL MCH 29.0 (25.0-35.0) pg MCHC 34.2 (31.0-37.0) g/dL RDW 13.0 (11.5-15.5) % Plt Count 234 (150-450) k/uL MPV 7.1 Neutrophils % 62 % Lymphocytes % 29 % Monocytes % 6 % Eosinophils % 1 % Basophils % 1 % Neutrophils # 4.4 (1.3-7.7) k/uL Lymphocytes # 2.1 (1.0-4.8) k/uL Monocytes # 0.4 (0-1.0) k/uL Eosinophils # 0.1 (0-0.7) k/uL Basophils # 0.0 (0-0.2) k/uL PT 9.7 (9.0-12.0) sec INR 0.9 (<1.2) APTT 22.6 (22.0-30.0) sec Sodium 135 L (137-145) mmol/L Potassium 4.7 (3.5-5.1) mmol/L Chloride 97 L (98-107) mmol/L Carbon Dioxide 21 L (22-30) mmol/L Anion Gap 17 mmol/L BUN 8 L (9-20) mg/dL Creatinine 0.83 (0.66-1.25) mg/dL Est GFR (CKD-EPI)AfAm >90 (>60 ml/min/1.73 sqM) Est GFR (CKD-EPI)NonAf >90 (>60 ml/min/1.73 sqM) Glucose 91 (74-99) mg/dL Calcium 9.2 (8.4-10.2) mg/dL Magnesium 2.0 (1.6-2.3) mg/dL Total Bilirubin 1.0 (0.2-1.3) mg/dL AST 123 H (17-59) U/L ALT 103 H (4-49) U/L Alkaline Phosphatase 71 (38-126) U/L Total Protein 8.2 (6.3-8.2) g/dL Albumin 5.2 H (3.5-5.0) g/dL Urine Color Urine Appearance (Clear) Urine pH (5.0-8.0) Ur Specific La[place] (1.001-1.035) Urine Protein (Negative) Urine Glucose (UA) (Negative) Urine Ketones (Negative) Urine Blood (Negative) Urine Nitrite (Negative) Urine Bilirubin (Negative) Urine Urobilinogen (<2.0) mg/dL Ur Leukocyte Esterase (Negative) Urine Mucus (None) /hpf 08/05/22 Range/Units 16:02 WBC (3.8-10.6) k/uL RBC (4.30-5.90) m/uL Hgb (13.0-17.5) gm/dL Hct (39.0-53.0) % MCV (80.0-100.0) fL MCH (25.0-35.0) pg MCHC (31.0-37.0) g/dL RDW (11.5-15.5) % Plt Count (150-450) k/uL MPV Neutrophils % % Lymphocytes % % Monocytes % % Eosinophils % % Basophils % % Neutrophils # (1.3-7.7) k/uL Lymphocytes # (1.0-4.8) k/uL Monocytes # (0-1.0) k/uL Eosinophils # (0-0.7) k/uL Basophils # (0-0.2) k/uL PT (9.0-12.0) sec INR (<1.2) APTT (22.0-30.0) sec Sodium (137-145) mmol/L Potassium (3.5-5.1) mmol/L Chloride (98-107) mmol/L Carbon Dioxide (22-30) mmol/L Anion Gap mmol/L BUN (9-20) mg/dL Creatinine (0.66-1.25) mg/dL Est GFR (CKD-EPI)AfAm (>60 ml/min/1.73 sqM) Est GFR (CKD-EPI)NonAf (>60 ml/min/1.73 sqM) Glucose (74-99) mg/dL Calcium (8.4-10.2) mg/dL Magnesium (1.6-2.3) mg/dL Total Bilirubin (0.2-1.3) mg/dL AST (17-59) U/L ALT (4-49) U/L Alkaline Phosphatase (38-126) U/L Total Protein (6.3-8.2) g/dL Albumin (3.5-5.0) g/dL Urine Color Colorless Urine Appearance Clear (Clear) Urine pH 5.0 (5.0-8.0) Ur Specific [place] 1.002 (1.001-1.035) Urine Protein Negative (Negative) Urine Glucose (UA) Negative (Negative) Urine Ketones 1+ H (Negative) Urine Blood Trace H (Negative) Urine Nitrite Negative (Negative) Urine Bilirubin Negative (Negative) Urine Urobilinogen <2.0 (<2.0) mg/dL Ur Leukocyte Esterase Negative (Negative) Urine Mucus Rare H (None) /hpf Disposition Clinical Impression: Alcoholism Disposition: HOME SELF-CARE Condition: Fair Instructions (If sedation given, give patient instructions): Abuse of Alcohol (ED) Additional Instructions: Please follow up with your [facility] clinic. Prescriptions: LORazepam [Ativan] 1 mg PO TID PRN 3 Days #9 tab PRN Reason: Alcohol Withdrawal Is patient prescribed a controlled substance at d/c from ED?: No Referrals: Jed Acosta MD [Primary Care Provider] - 1-2 days Time of Disposition: 16:43
[2022-08-05 16:02] LABS: INR 0.9 (<1.2); Partial Thromboplastin Time 22.6 sec (22.0-30.0); Prothrombin Time 9.7 sec (9.0-12.0)
[2022-08-05 16:13] LABS: ALT 103 U/L (4-49); AST 123 U/L (17-59); African American GFR (CKD) >90 (>60 ml/min/1.73 sqM); Albumin 5.2 g/dL (3.5-5.0); Alkaline Phosphatase 71 U/L (38-126); Anion Gap 17 mmol/L; Blood Urea Nitrogen 8 mg/dL (9-20); Calcium 9.2 mg/dL (8.4-10.2); Carbon Dioxide 21 mmol/L (22-30); Chloride 97 mmol/L (98-107); Glucose 91 mg/dL (74-99); Non-African American GFR(CKD) >90 (>60 ml/min/1.73 sqM); Potassium 4.7 mmol/L (3.5-5.1); Sodium 135 mmol/L (137-145); Total Protein 8.2 g/dL (6.3-8.2)
[2022-08-05 16:21] LABS: Appearance,Urine Clear (Clear); Bilirubin,Urine Negative (Negative); Blood,Urine Trace (Negative); Color,Urine Colorless; Glucose,Urine (UA) Negative (Negative); Ketones,Urine 1+ (Negative); Leukocyte Esterase,Urine Negative (Negative); Mucus,Urine Rare /hpf; Nitrite,Urine Negative (Negative); Protein,Urine Negative (Negative); Specific Gravity,Urine 1.002 (1.001-1.035); Urobilinogen,Urine <2.0 mg/dL (<2.0)
[2022-08-05 17:07] VITALS: BP 154/105; PULSE 125; RESP 18
== END 2022-08-05 17:35 | disposition home or self-care (01) ==
LOC: EC 13:42
DX: F10.20 Alcohol dependence, uncomplicated (principal); F31.9 Bipolar disorder, unspecified; F41.9 Anxiety disorder, unspecified; F12.90 Cannabis use, unspecified, uncomplicated; Z79.899 Other long term (current) drug therapy
CPT/HCPCS: 36415; 80053; 83735; 85025; 85610; 85730; 81001; 99284; 96374; J2060

== ENCOUNTER 2022-09-27 15:07 | Emergency (ER) | payer OTHER ==
--- NOTE | 2022-09-27 15:30 | ED ---
Wound/Laceration HPI - General Source: patient, RN notes reviewed Mode of arrival: wheelchair Limitations: no limitations <Kathy Peres - Last Filed: 09/27/22 15:27> <Jannet Liao - Last Filed: 09/27/22 17:30> - General Chief Complaint: Wound/Laceration Stated Complaint: foot laceration Time Seen by Provider: 09/27/22 15:25 - History of Present Illness Initial Comments: This is a 32 year old male who presents to the emergency department for a laceration to the left foot. States that he accidentally cut this on a piece of glass shortly before arrival. Pain is minimal at this time. Tetanus vaccine is up to date. (Kathy Peres) HPI as above reviewed however patient reports that he does not believe that his tetanus is up-to-date M tetanus vaccination today. He denies any range of motion impairment of his left great toe not related to pain but does report some numbness. He denies any other complaints or concerns at this time. He denies any injury to any other location. He has a significant past medical history of Raynaud's disease. (Jannet Liao) - Related Data Previous Rx's Medication Instructions Recorded LORazepam [Ativan] 1 mg PO TID PRN 3 Days #9 tab 08/05/22 Allergies Allergy/AdvReac Type Severity Reaction Status Date / Time codeine Allergy Rash/Hives Verified 08/05/22 16:04 Penicillins Allergy Rash/Hives Verified 08/05/22 16:04 lactose AdvReac Nausea & Verified 08/05/22 16:04 Vomiting & Diarrhea Review of Systems ROS Other: All systems not noted in ROS Statement are negative. <Kathy Peres - Last Filed: 09/27/22 15:27> ROS Other: All systems not noted in ROS Statement are negative. <Jannet Liao - Last Filed: 09/27/22 17:30> ROS Statement: Those systems with pertinent positive or pertinent negative responses have been documented in the HPI. 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,Reynaud's disease History of Any Multi-Drug Resistant Organisms: None Reported Past Surgical History: Orthopedic Surgery Additional Past Surgical History / Comment(s): right foot,wisdom teeth Past Anesthesia/Blood Transfusion Reactions: No Reported Reaction Additional Past Anesthesia/Blood Transfusion Reaction / Comment(s): no hx blood transfusion Past Psychological History: ADD/ADHD, Anxiety, Bipolar Past Alcohol Use History: Abuse, Daily, Heavy Past Drug Use History: Marijuana - Past Family History Mother Family Medical History: No Reported History <Kathy Peres - Last Filed: 09/27/22 15:27> General Exam <Kathy Peres - Last Filed: 09/27/22 15:27> General appearance: alert, in no apparent distress Head exam: Present: atraumatic, normocephalic, normal inspection Eye exam: Present: normal appearance, PERRL, EOMI. Absent: scleral icterus, conjunctival injection, periorbital swelling ENT exam: Present: normal exam, mucous membranes moist Neck exam: Present: normal inspection, full ROM Respiratory exam: Absent: respiratory distress, accessory muscle use Cardiovascular Exam: Present: regular rate GI/Abdominal exam: Absent: distended Left Foot/Toe exam: Present: full ROM, tenderness, laceration (Plantar surface around to medial aspect 3.5 cm in length.). Absent: swelling, abrasion, ecchymosis, deformity, crepitus, dislocation, erythema, amputation, puncture wound, foreign body, calcaneal tenderness, tenderness at base of 5th metatarsal, nail avulsion, subungual hematoma Neurovascular tendon exam: Present: no vascular compromise. Absent: motor deficit, sensory deficit, extremity cold to touch, pallor Gait: observed and limited by pain Back exam: Present: normal inspection Neurological exam: Present: alert, oriented X3, CN II-XII intact Psychiatric exam: Present: normal affect, normal mood Skin exam: Present: warm, dry, intact, normal color. Absent: rash <Jannet Liao - Last Filed: 09/27/22 17:30> - General Exam Comments Initial Comments: Visual Physical Exam Vital signs reviewed General: Well-appearing, nontoxic, no acute distress. Head: Normocephalic, atraumatic Eyes: PERRLA, EOMI ENT: Airway patent Chest: Nonlabored breathing Skin: No visual rash, normal skin tone Neuro: Alert and oriented 3 Musculoskeletal: No gross abnormalities I performed the QuickNote portion of this chart. Signed Kathy Peres PA-C. (Kathy Peres) Course Vital Signs 09/27/22 15:27 Temperature 97.7 F Pulse Rate 100 Respiratory 20 Rate Blood Pressure 137/82 O2 Sat by Pulse 98 Oximetry Procedures - Laceration Laceration #1 Indication: laceration Site: foot Size (cm): 3 Description: linear Depth: simple, single layer Anesthetic Used: lidocaine 1% Anesthesia Technique: local infiltration Pre-repair: wound explored, irrigated extensively, deep structures intact Type of Sutures: nylon Size of Sutures: 4-0 Number of Sutures: 8 Technique: simple, interrupted Patient Tolerated Procedure: well, no complications <Jannet Liao - Last Filed: 09/27/22 17:30> Medical Decision Making - Radiology Data Radiology results: report reviewed, image reviewed <Jannet Liao - Last Filed: 09/27/22 17:30> - Medical Decision Making Was pt. sent in by a medical professional or institution (MAITE Valadez, MANAGER INVESTMENT, urgent care, hospital, or prison...) When possible be specific @ -No Did you speak to anyone other than the patient for history (EMS, parent, family, police, friend...)? What history was obtained from this source @ -No Did you review nursing and triage notes (agree or disagree)? Why? @ -I reviewed and agree with nursing and triage notes Were old charts reviewed (outside hosp., previous admission, EMS record, old EKG, old radiological studies, urgent care reports/EKG's, prison records)? Report findings @ -No old charts were reviewed Differential Diagnosis (chest pain, altered mental status, abdominal pain women, abdominal pain men, vaginal bleeding, weakness, fever, dyspnea, syncope, headache, dizziness, GI bleed, back pain, seizure, CVA, palpatations, mental health, musculoskeletal)? @ -not applicable EKG interpreted by me (3pts min.). @ -None done X-rays interpreted by me (1pt min.). @ -None done CT interpreted by me (1pt min.). @ -None done U/S interpreted by me (1pt. min.). @ -None done What testing was considered but not performed or refused? (CT, X-rays, U/S, labs)? Why? @ -None What meds were considered but not given or refused? Why? @ -None Did you discuss the management of the patient with other professionals (professionals i.e. , PA, MANAGER INVESTMENT, lab, RT, psych nurse, social professionals, assembly inspector helper, teacher, national insurance officer, case picker)? Give summary @ -No Was smoking cessation discussed for >3mins.? @ -No Was critical care preformed (if so, how long)? @ -No Were there social determinants of health that impacted care today? How? (Homelessness, low income, unemployed, alcoholism, drug addiction, transportation, low edu. Level, literacy, decrease access to med. care, fdc, rehab)? @ -No Was there de-escalation of care discussed even if they declined (Discuss DNR or withdrawal of care, Hospice)? DNR status @ -No What co-morbidities impacted this encounter? (DM, HTN, Smoking, COPD, CAD, Cancer, CVA, ARF, Chemo, Hep., AIDS, mental health diagnosis, sleep apnea, morbid obesity)? @ -None Was patient admitted / discharged? Hospital course, mention meds given and route, prescriptions, significant lab abnormalities, going to OR and other pertinent info. @ -32-year-old male presenting emergency room for laceration to left great toe which he obtained on a piece of glass while walking around in his house barefoot. Initially believed his tetanus is up-to-date but is unsure whether give tetanus updated will update. Will obtain x-ray due to depth of laceration. xray negative for foreign body or fracture. Laceration closure tolerated well. Wound care discussed. No indication for any antibiotic therapy at this time. Questions and concerns answered. Return parameters emergency room discussed. Will discharge home in stable condition with sutures intact a laceration to left great toe advising return to the emergency room in 7-10 days for suture removal and follow-up with primary care provider as needed. Undiagnosed new problem with uncertain prognosis? @ -No Drug Therapy requiring intensive monitoring for toxicity (Heparin, Nitro, Insulin, Cardizem)? @ -No Were any procedures done? @ -Yes laceration closure see procedures for details Diagnosis/symptom? @ -Laceration Acute, or Chronic, or Acute on Chronic? @ -Acute Uncomplicated (without systemic symptoms) or Complicated (systemic symptoms)? @ -Uncomplicated Side effects of treatment? @ -No Exacerbation, Progression, or Severe Exacerbation? @ -No Poses a threat to life or bodily function? How? (Chest pain, USA, [place], pneumonia, PE, COPD, DKA, ARF, appy, cholecystitis, CVA, Diverticulitis, Homicidal, Suicidal, threat to staff... and all critical care pts) @ -No Case discussed Dr. Luther. (Jannet Liao) Disposition <Kathy Peres - Last Filed: 09/27/22 15:27> Is patient prescribed a controlled substance at d/c from ED?: No Time of Disposition: 17:28 <Jannet Liao - Last Filed: 09/27/22 17:30> Clinical Impression: Laceration Disposition: HOME SELF-CARE Condition: Stable Instructions (If sedation given, give patient instructions): Care For Your Stitches (ED), Laceration (ED) Additional Instructions: Please keep wound clean and dry. Monitor for signs and symptoms of infection and seek medical attention as appropriate if symptoms occur. Please return to the emergency department for suture removal in 7-10 days. Please return to the Emergency Department if symptoms worsen or any other concerns. Referrals: Jed Acosta MD [Primary Care Provider] - 1-2 days
[2022-09-27] MEDS ORDERED: LIDOCAINE 1% INJ 10MG/ML (20 ML MDV) SQ ONE (15:57)
--- NOTE | 2022-09-27 17:00 | XR ---
EXAMINATION TYPE: XR toes LT DATE OF EXAM: 09/27/2022 4:45 PM INDICATION: Patient age:Male; 32 years old; Reason for study: laceration; PH[facility]. COMPARISON: None TECHNIQUE: The first digit of the left foot was examined in the AP, oblique, and lateral projections. FINDINGS: No acute fracture or dislocation. There is a soft tissue laceration along the lateral aspect of the f irst digit proximal phalanx. Linear 2 mm foreign body identified within the anterior soft tissues ove r the first digit proximal phalanx. Mild soft tissue swelling. IMPRESSION: 1. No evidence of acute fracture. 2. Linear 2 mm foreign body identified within the anterior soft tissues over the first digit proxima l phalanx. Associated laceration.
[2022-09-27 17:37] VITALS: RESP 18; TEMP 98.4
[2022-09-27 18:35] VITALS: BP 140/84; PULSE 85
== END 2022-09-27 18:57 | disposition home or self-care (01) ==
LOC: EC 15:07
DX: S91.312A Laceration without foreign body, left foot, initial encounter (principal); F12.90 Cannabis use, unspecified, uncomplicated; Z86.59 Personal history of other mental and behavioral disorders; Z88.0 Allergy status to penicillin; Z88.5 Allergy status to narcotic agent; Z91.011 Allergy to milk products; W25.XXXA Contact with sharp glass, initial encounter
CPT/HCPCS: 73660; 99283; 12002; J2001

== ENCOUNTER 2022-11-11 09:07 | Emergency (ER) | payer OTHER ==
--- NOTE | 2022-11-11 10:07 | ED ---
General Adult HPI - General Chief complaint: Abdominal Pain Stated complaint: abd pain Time Seen by Provider: 11/11/22 09:23 Source: patient, RN notes reviewed, old records reviewed Mode of arrival: ambulatory Limitations: no limitations - History of Present Illness Initial comments: 32-year-old male presented for evaluation of left testicular pain. Pain is been present for the past 3 days. No fever. No vomiting. Patient does report some dysuria. No significant abdominal pain. - Related Data Previous Rx's Medication Instructions Recorded LORazepam [Ativan] 1 mg PO TID PRN 3 Days #9 tab 08/05/22 Allergies Allergy/AdvReac Type Severity Reaction Status Date / Time codeine Allergy Rash/Hives Verified 11/11/22 09:17 Penicillins Allergy Rash/Hives Verified 11/11/22 09:17 lactose AdvReac Nausea & Verified 11/11/22 09:17 Vomiting & Diarrhea Review of Systems ROS Statement: Those systems with pertinent positive or pertinent negative responses have been documented in the HPI. ROS Other: All systems not noted in ROS Statement are negative. 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 ,Reynaud's disease History of Any Multi-Drug Resistant Organisms: None Reported Past Surgical History: Orthopedic Surgery Additional Past Surgical History / Comment(s): right foot,wisdom teeth Past Anesthesia/Blood Transfusion Reactions: No Reported Reaction Additional Past Anesthesia/Blood Transfusion Reaction / Comment(s): no hx blood transfusion Past Psychological History: ADD/ADHD, Anxiety, Bipolar Smoking Status: Never smoker Past Alcohol Use History: Abuse, Daily, Heavy Past Drug Use History: Marijuana - Past Family History Mother Family Medical History: No Reported History General Exam Limitations: no limitations General appearance: alert, in no apparent distress Head exam: Present: atraumatic, normocephalic Eye exam: Present: normal appearance, PERRL ENT exam: Present: normal exam Neck exam: Present: normal inspection. Absent: tenderness, meningismus Respiratory exam: Present: normal lung sounds bilaterally. Absent: respiratory distress, wheezes Cardiovascular Exam: Present: regular rate, normal rhythm GI/Abdominal exam: Present: soft. Absent: distended, tenderness, guarding, rebound, rigid, hernia exam: Present: vertical testicular lie. Absent: testicular tenderness, scrotal swelling Neurological exam: Present: alert, oriented X3 Psychiatric exam: Present: anxious Skin exam: Present: warm, dry, intact. Absent: cyanosis, diaphoretic Course Vital Signs 11/11/22 09:15 Temperature 98.2 F Pulse Rate 122 H Respiratory 20 Rate Blood Pressure 142/88 O2 Sat by Pulse 99 Oximetry Medical Decision Making - Medical Decision Making Was pt. sent in by a medical professional or institution (MAITE Valadez, NET DEVELOPER [employer] ENGINE[employer] C, urgent ca re, hospital, or alf...) When possible be specific @ -No Did you speak to anyone other than the patient for history (EMS, parent, family, police, friend...)? What history was obtained from this source @ -No Did you review nursing and triage notes (agree or disagree)? Why? @ -I reviewed and agree with nursing and triage notes Were old charts reviewed (outside hosp., previous admission, EMS record, old EKG, old radiological studies, urgent care reports/EKG's, alf records)? Report findings @ -No old charts were reviewed Differential Diagnosis (chest pain, altered mental status, abdominal pain women, abdominal pain men, vaginal bleeding, weakness, fever, dyspnea, syncope, headache, dizziness, GI bleed, back pain, seizure, CVA, palpatations, mental health, musculoskeletal)? @ -To Ellis torsion, orchitis, epididymitis, urinary tract infection EKG interpreted by me (3pts min.). @ -As above X-rays interpreted by me (1pt min.). @ -None done CT interpreted by me (1pt min.). @ -None done U/S interpreted by me (1pt. min.). @ -Ultrasound negative for torsion or acute findings What testing was considered but not performed or refused? (CT, X-rays, U/S, labs)? Why? @ -None What meds were considered but not given or refused? Why? @ -None Did you discuss the management of the patient with other professionals (professionals i.e. MAITE Valadez, NET DEVELOPER SOFTWARE ENGINE[employer] C, lab, RT, psych nurse, web content & social media manager, animal care service worker, teacher, chairman president and chief executive officer, manager of case)? Give summary @ -No Was smoking cessation discussed for >3mins.? @ -No Was critical care preformed (if so, how long)? @ -No Were there social determinants of health that impacted care today? How? (Homelessness, low income, unemployed, alcoholism, drug addiction, transportation, low edu. Level, literacy, decrease access to med. care, correction, rehab)? @ -No Was there de-escalation of care discussed even if they declined (Discuss DNR or withdrawal of care, Hospice)? DNR status @ -No What co-morbidities impacted this encounter? (DM, HTN, Smoking, COPD, CAD, Cancer, CVA, ARF, Chemo, Hep., AIDS, mental health diagnosis, sleep apnea, morbid obesity)? @ -None Was patient admitted / discharged? Hospital course, mention meds given and route, prescriptions, significant lab abnormalities, going to OR and other pertinent info. @32-year-old male with left testicular pain. Normal exam. Ultrasound negative for torsion or acute findings, negative urinalysis. Patient should follow with his primary care provider. Undiagnosed new problem with uncertain prognosis? @ -No Drug Therapy requiring intensive monitoring for toxicity (Heparin, Nitro, Insulin, Cardizem)? @ -No Were any procedures done? @ -No Diagnosis/symptom? @Left testicular pain Acute, or Chronic, or Acute on Chronic? @ -Acute Uncomplicated (without systemic symptoms) or Complicated (systemic symptoms)? @ -default Side effects of treatment? @ -No Exacerbation, Progression, or Severe Exacerbation? @ -No Poses a threat to life or bodily function? How? (Chest pain, [place], [place], pneumonia, PE, COPD, DKA, ARF, appy, cholecystitis, CVA, Diverticulitis, Homicidal, Suicidal, threat to staff... and all critical care pts) @ -No - Lab Data Lab Results 11/11/22 Range/Units 09:50 Urine Color Yellow Urine Appearance Clear (Clear) Urine pH 5.5 (5.0-8.0) Ur Specific [place] 1.029 (1.001-1.035) Urine Protein 1+ H (Negative) Urine Glucose (UA) Negative (Negative) Urine Ketones Negative (Negative) Urine Blood Negative (Negative) Urine Nitrite Negative (Negative) Urine Bilirubin Negative (Negative) Urine Urobilinogen <2.0 (<2.0) mg/dL Ur Leukocyte Esterase Negative (Negative) Urine RBC <1 (0-5) /hpf Urine WBC 1 (0-5) /hpf Urine Mucus Occasional H (None) /hpf Disposition Clinical Impression: Left testicular pain Disposition: HOME SELF-CARE Condition: Good Instructions (If sedation given, give patient instructions): Testicle Pain (ED) Is patient prescribed a controlled substance at d/c from ED?: No Referrals: Jed Acosta MD [Primary Care Provider] - 1-2 days Time of Disposition: 11:03
[2022-11-11 10:11] LABS: Appearance,Urine Clear (Clear); Bilirubin,Urine Negative (Negative); Blood,Urine Negative (Negative); Color,Urine Yellow; Glucose,Urine (UA) Negative (Negative); Ketones,Urine Negative (Negative); Leukocyte Esterase,Urine Negative (Negative); Mucus,Urine Occasional /hpf; Nitrite,Urine Negative (Negative); PH, Urine 5.5 (5.0-8.0); Protein,Urine 1+ (Negative); RBC,Urine <1 /hpf (0-5); Specific Gravity,Urine 1.029 (1.001-1.035); Urobilinogen,Urine <2.0 mg/dL (<2.0); WBC,Urine 1 /hpf (0-5)
--- NOTE | 2022-11-11 10:55 | US ---
EXAMINATION TYPE: US scrotum with doppler. TECHNIQUE: Grayscale and color Doppler Duplex imaging performed of the scrotum. DATE OF EXAM: 11/11/2022 COMPARISON: NONE CLINICAL INDICATION: Male, 32 years old with history of testicle pain; Bilateral testicular pain inte rmittently x 3 days. Hx vasectomy last November 2021. EXAM MEASUREMENTS: TESTICLES: Right Testicle: 5.2 x 3.9 x 2.6 cm Left Testicle: 5.3 x 3.2 x 2.8 cm EPIDIDYMIS HEAD: Right Epididymis: 0.7 x 0.8 x 1.2 cm Left Epididymis: 0.7 x 1.2 x 1.3 cm Doppler performed to assess for testicular vascularity; bilateral color flow and waveforms are seen. Presence of hydroceles: None seen Presence of varicoceles: None seen IMPRESSION: No specific abnormality seen. No sonographic evidence for testicular torsion or epididymoorchitis.
[2022-11-11 11:28] VITALS: BP 131/94; PULSE 107; RESP 18; TEMP 97.8
== END 2022-11-11 11:22 | disposition home or self-care (01) ==
LOC: EC 09:07
DX: N50.812 Left testicular pain (principal); F12.90 Cannabis use, unspecified, uncomplicated; Z88.0 Allergy status to penicillin; Z88.5 Allergy status to narcotic agent; Z91.011 Allergy to milk products
CPT/HCPCS: 76870; 81001; 93975; 99284

== ENCOUNTER 2022-12-07 18:02 | Emergency (ER) | payer OTHER ==
[2022-12-07 18:19] VITALS: RESP 18; TEMP 98
[2022-12-07 18:45] LABS: Basophils % (A) 1 %; Eosinophils # (A) 0.3 k/uL (0-0.7); Eosinophils % (A) 3 %; HCT 44.7 % (39.0-53.0); HGB 15.3 gm/dL (13.0-17.5); Lymphocytes # (A) 2.7 k/uL (1.0-4.8); Lymphocytes % (A) 36 %; MCH 28.7 pg (25.0-35.0); MCHC 34.2 g/dL (31.0-37.0); MCV 83.9 fL (80.0-100.0); Mean Platelet Volume 8.3; Monocytes # (A) 0.5 k/uL (0-1.0); Monocytes % (A) 7 %; Neutrophils # (A) 3.7 k/uL (1.3-7.7); Neutrophils % (A) 50 %; Platelet Count 184 k/uL (150-450); RBC 5.33 m/uL (4.30-5.90); RDW 13.1 % (11.5-15.5); WBC 7.4 k/uL (3.8-10.6)
--- NOTE | 2022-12-07 18:58 | XR ---
EXAMINATION TYPE: XR chest 2V DATE OF EXAM: 12/07/2022 COMPARISON: Prior chest x-ray December 10, 2017 HISTORY: Chest pain. TECHNIQUE: Frontal and lateral views of the chest are obtained. FINDINGS: There is no suspicious new focal air space opacity, pleural effusion, or pneumothorax seen . The cardiac silhouette size is stable and within normal limits. The osseous structures are intac t. IMPRESSION: No acute process. No significant change from prior.
[2022-12-07 19:08] LABS: Partial Thromboplastin Time 25.4 sec (22.0-30.0); Prothrombin Time 10.7 sec (10.0-12.5)
[2022-12-07] MEDS ORDERED: ONDANSETRON 4 MG/2 ML VIAL IVP STA (19:39)
[2022-12-07] MEDS ORDERED: KETOROLAC 15 MG/ML 1 ML VIAL IVP STA (19:39)
[2022-12-07] MEDS ORDERED: LORazepam 2 MG/ML INJ IV STA (19:39)
[2022-12-07] MEDS ORDERED: SODIUM CHLORIDE 0.9% 1,000 ML IV STA (19:40)
--- NOTE | 2022-12-07 19:44 | ED ---
Chest Pain HPI - General Chief Complaint: Chest Pain Stated Complaint: Chest Pain Time Seen by Provider: 12/07/22 19:39 Source: patient, RN notes reviewed, old records reviewed Mode of arrival: ambulatory Limitations: no limitations - History of Present Illness Initial Comments: This is a 32-year-old male to the emergency department today for evaluation today. Patient presents today for evaluation regards to overall not feeling well. Patient pain. Admits to severe anxiety history of alcohol abuse persistent chest pain here in the ER. Concern for right lower Shorty pain and weakness. Patient has no significant medical history himself states he does suffer from are not disease with history of alcohol abuse. Patient does not currently drink alcohol and has no other complaints does admit to severe anxiety on arrival to the ER although that is improved MD Complaint: chest pain -: days(s) Onset: during rest, during exertion Pain Location: substernal, left chest Pain Radiation: none Severity: mild Quality: tightness Consistency: intermittent Improves With: nothing Worsens With: nothing Other Symptoms: palpitations Treatments Prior to Arrival: none - Related Data Home Medications Medication Instructions Recorded Confirmed No Known Home Medications 12/07/22 12/07/22 Allergies Allergy/AdvReac Type Severity Reaction Status Date / Time codeine Allergy Rash/Hives Verified 12/07/22 20:44 Penicillins Allergy Rash/Hives Verified 12/07/22 20:44 all over body lactose AdvReac Nausea & Verified 12/07/22 20:44 Vomiting & Diarrhea Review of Systems ROS Statement: Those systems with pertinent positive or pertinent negative responses have been documented in the HPI. ROS Other: All systems not noted in ROS Statement are negative. 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,Reynaud's disease History of Any Multi-Drug Resistant Organisms: None Reported Past Surgical History: Orthopedic Surgery Additional Past Surgical History / Comment(s): right foot,wisdom teeth Past Anesthesia/Blood Transfusion Reactions: No Reported Reaction Additional Past Anesthesia/Blood Transfusion Reaction / Comment(s): no hx blood transfusion Past Psychological History: ADD/ADHD, Anxiety, Bipolar Smoking Status: Never smoker Past Alcohol Use History: Abuse, Daily, Heavy Past Drug Use History: Marijuana - Past Family History Mother Family Medical History: No Reported History General Exam Limitations: no limitations General appearance: anxious Head exam: Present: atraumatic, normocephalic, normal inspection Eye exam: Present: normal appearance, PERRL, EOMI. Absent: scleral icterus, conjunctival injection, periorbital swelling ENT exam: Present: normal exam, mucous membranes moist Neck exam: Present: normal inspection. Absent: tenderness, meningismus, lymphadenopathy Respiratory exam: Present: normal lung sounds bilaterally. Absent: respiratory distress, wheezes, rales, rhonchi, stridor Cardiovascular Exam: Present: normal rhythm, tachycardia, normal heart sounds. Absent: systolic murmur, diastolic murmur, rubs, gallop, clicks GI/Abdominal exam: Present: soft, normal bowel sounds. Absent: distended, tenderness, guarding, rebound, rigid Extremities exam: Present: normal inspection, full ROM, normal capillary refill. Absent: tenderness, pedal edema, joint swelling, calf tenderness Back exam: Present: normal inspection Neurological exam: Present: alert, oriented X3, CN II-XII intact Psychiatric exam: Present: normal affect, normal mood Skin exam: Present: warm, dry, intact, normal color. Absent: rash Course Vital Signs 12/07/22 12/07/22 18:14 21:07 Temperature 98 F Pulse Rate 132 H 88 Respiratory 18 18 Rate Blood Pressure 158/96 158/88 O2 Sat by Pulse 99 99 Oximetry - Reevaluation(s) Reevaluation #1: 12/07/22 21:00 Medical record is reviewed Reevaluation #2: 12/07/22 21:01 Patient symptoms are improved and remained improved Reevaluation #3: 12/07/22 21:01 Patient informed results questions answered Reevaluation #4: 12/07/22 19:43 Was pt. sent in by a medical professional or institution (, PA, [employer], urgent care, hospital, or shelter...) When possible be specific @ -no Did you speak to anyone other than the patient for history (EMS, parent, family, police, friend...)? What history was obtained from this source @ -no Did you review nursing and triage notes (agree or disagree)? Why? @ -agree Are old charts reviewed (outside hosp., previous admission, EMS record, old EKG, old radiological studies, urgent care reports/EKG's, shelter records)? Report findings @ -yes Differential Diagnosis (chest pain, altered mental status, abdominal pain women, abdominal pain men, vaginal bleeding, weakness, fever, dyspnea, syncope, headache, dizziness, GI bleed, back pain, seizure, CVA, palpatations, mental health, musculoskeletal)? @ -prior EKG interpreted by me (3pts min.). @ -yes X-rays interpreted by me (1pt min.). @ -yes CT interpreted by me (1pt min.). @ -no U/S interpreted by me (1pt. min.). @ -no What testing was considered but not performed or refused? (CT, X-rays, U/S, labs)? Why? @ -none What meds were considered but not given or refused? Why? @ -none Did you discuss the management of the patient with other professionals (professionals i.e. , PA, [employer], lab, RT, psych nurse, sr. social media & mobile manager, manager of corporate, teacher, founder and chief executive officer, case specialist)? Give summary @ -no Was smoking cessation discussed for >3mins.? @ -no Was critical care preformed (if so, how long)? @ -no Were there social determinants of health that impacted care today? How? (Homeles sness, low income, unemployed, alcoholism, drug addiction, transportation, low edu. Level, literacy, decrease access to med. care, detention, rehab)? @ -none Was there de-escalation of care discussed even if they declined (Discuss DNR or withdrawal of care, Hospice)? DNR status @ -no What co-morbidities impacted this encounter? (DM, HTN, Smoking, COPD, CAD, Cancer, CVA, ARF, Chemo, Hep., AIDS, mental health diagnosis, sleep apnea, morbid obesity)? @ -none Was patient admitted / discharged? Hospital course, mention meds given and route, prescriptions, significant lab abnormalities, going to OR and other pertinent info. @ - 32 male with nonspecific chest pain right lower Shorty pain. D-dimer is negative. Patient has no significant risk for DVT or PE. Patient feels improved here in the ER and can be discharged home Discharge Undiagnosed new problem with uncertain prognosis? @ -no Drug Therapy requiring intensive monitoring for toxicity (Heparin, Nitro, Insulin, Cardizem)? @ -no Were any procedures done? @ -no Diagnosis/symptom? @ -Chest pain, leg pain Acute, or Chronic, or Acute on Chronic? @ -Acute Uncomplicated (without systemic symptoms) or Complicated (systemic symptoms)? @ -Complicated Side effects of treatment? @ -no Exacerbation, Progression, or Severe Exacerbation? @ -exacerbation Poses a threat to life or bodily function? How? (Chest pain, [place], [place], pneumonia, PE, COPD, DKA, ARF, appy, cholecystitis, CVA, Diverticulitis, Homicidal, Suicidal, threat to staff... and all critical care pts) @ -yes with acute cause of chest pain Reevaluation #5: 12/07/22 19:43 Differential Chest Pain: Stable Angina, Unstable Angina, STEMI, NSTEMI Aortic Dissection, Pneumothorax, Musculoskeletal, Esophageal Spasm GERD, Cholecystitis, Pancreatitis, Zoster, this is not meant to be an all-inclusive list. Chest Pain MDM - MDM 32 male with nonspecific chest pain right lower Shorty pain. D-dimer is negative. Patient has no significant risk for DVT or PE. Patient feels improved here in the ER and can be discharged home Disposition Clinical Impression: Acute anxiety, Chest pain, Right leg pain Disposition: HOME SELF-CARE Condition: Fair Instructions (If sedation given, give patient instructions): Chest Pain (ED), Leg Pain (ED) Is patient prescribed a controlled substance at d/c from ED?: No Referrals: Jed Acosta MD [Primary Care Provider] - 1-2 days Time of Disposition: 20:40
[2022-12-07 19:52] LABS: ALT 40 U/L (4-49); AST 32 U/L (17-59); African American GFR (CKD) >90 (>60 ml/min/1.73 sqM); Albumin 4.9 g/dL (3.5-5.0); Alkaline Phosphatase 51 U/L (38-126); Anion Gap 15 mmol/L; Blood Urea Nitrogen 9 mg/dL (9-20); Calcium 10.1 mg/dL (8.4-10.2); Carbon Dioxide 23 mmol/L (22-30); Chloride 102 mmol/L (98-107); Glucose 152 mg/dL (74-99); Magnesium 1.8 mg/dL (1.6-2.3); Non-African American GFR(CKD) >90 (>60 ml/min/1.73 sqM); Potassium 3.6 mmol/L (3.5-5.1); Sodium 140 mmol/L (137-145); Total Bilirubin 0.7 mg/dL (0.2-1.3); Total Protein 7.8 g/dL (6.3-8.2)
[2022-12-07 21:17] VITALS: BP 158/88; PULSE 88
== END 2022-12-07 21:16 | disposition home or self-care (01) ==
LOC: EC 18:02
DX: R07.89 Other chest pain (principal); F41.9 Anxiety disorder, unspecified; M79.604 Pain in right leg; F31.9 Bipolar disorder, unspecified; F12.90 Cannabis use, unspecified, uncomplicated; Z88.0 Allergy status to penicillin; Z88.5 Allergy status to narcotic agent; Z91.011 Allergy to milk products
CPT/HCPCS: 36415; 93005; 85379; 80053; 83735; 84484; 85025; 85610; 85730; 71046; 99285; 96374; 96375 ×2; 96361; J2060; J2405; J1885